=== PATIENT | female | born 1960 | race Caucasian/White ===

== ENCOUNTER 2022-03-31 15:44 | Emergency (ER) | payer SELFPAY ==
[~2022-03-31] VITALS: Ht 167.6 cm; Wt 108.9 kg
[2022-03-31 15:47] VITALS: BP 176/93
--- NOTE | 2022-03-31 15:47 | NUR ---
BIBA TO BED 12.
[2022-03-31] MEDS ORDERED: MECLIZINE 25 MG TAB PO ONE (16:40)
[2022-03-31] MEDS ORDERED: NACL 0.9% 1,000 ML IV ONE (16:40)
[2022-03-31] MEDS ORDERED: ONDANSETRON 4 MG/2 ML VIAL IVP ONE (16:40)
--- NOTE | 2022-03-31 16:40 | NUR ---
61 y/o female biba, pt presents to ed with lightheadedness, nausea and vomiting since 1300, pt states she was waiting outside in the heat and started feeling dizzy. denies cp, sob, fever, chills, or cough. a&ox4, states she is unable to ambulate at this time due to feeling dizzy and weak, c/o pain 5/10 on left side of her head. pmh: htn, vertigo nka med: advil
--- NOTE | 2022-03-31 17:06 | NUR ---
santiago called on the phone, given update at this time
[2022-03-31 17:19] LABS: BASOPHILS % (AUTO) 0.3 % (0.0-2.0); EOSINOPHILS % (AUTO) 0.1 % (0.0-4.0); HEMATOCRIT 43.6 % (36-48); LYMPHOCYTES # (AUTO) 1.1 K/uL (2.5-16.5); LYMPHOCYTES % (AUTO) 7.9 % (20.5-51.1); MEAN CORPUSCULAR HEMOGLOBIN 26 pg (27-31); MEAN CORPUSCULAR HGB CONC 32 g/dL (33-37); MEAN CORPUSCULAR VOLUME 80.2 fL (80-94); MONOCYTES # (AUTO) 0.4 K/uL (0.8-1.0); MONOCYTES % (AUTO) 3.1 % (1.7-9.3); NEUTROPHILS # (AUTO) 11.8 K/uL (1.8-7.7); NEUTROPHILS % (AUTO) 88.6 % (42.2-75.2); PLATELET COUNT (AUTO) 224 K/uL (140-450); RED BLOOD CELL COUNT(AUTO) 5.44 MIL/uL (4.20-5.40); RED CELL DISTRIBUTION WIDTH 16.2 % (11.6-13.7); WHITE BLOOD COUNT (AUTO) 13.3 K/uL (4.8-10.8)
[2022-03-31 17:31] LABS: ANION GAP 12.2 (8-16); CARBON DIOXIDE 25.4 mmol/L (21-32); CREATININE 0.8 mg/dL (0.6-1.3); POTASSIUM 3.6 mmol/L (3.5-5.1)
--- NOTE | 2022-03-31 18:21 | NUR ---
pt ambulated to the bathroom at this time with even and steady gait
[2022-03-31] MEDS ORDERED: diazePAM 5 MG TAB PO ONE (18:40)
--- NOTE | 2022-03-31 19:12 | NUR ---
Patient appears to be resting comfortably in bed. Vital Signs within normal limits. Respirations even and unlabored.
--- NOTE | 2022-03-31 19:23 | NUR ---
Pt report given to Polly VALDIVIA. Transfer of care at this time.
[2022-03-31] MEDS ORDERED: ONDA8TAB87 PO (19:25)
[2022-03-31] MEDS ORDERED: MECL-303 PO (19:25)
--- NOTE | 2022-03-31 19:35 | NUR ---
.PT IS AWAKE AND ALERT, ALL NEEDS MET AT THIS TIME. BED LOCKED IN LOWEST POSITION, SIDE RAILS X2 FOR SAFETY
[2022-03-31 20:08] VITALS: BP 174/89
--- NOTE | 2022-03-31 20:08 | NUR ---
Patient discharged with v/s stable. Written and verbal after care instructions given and explained. Patient alert, oriented and verbalized understanding of instructions. Ambulatory with steady gait. All questions addressed prior to discharge. ID band removed. Patient advised to follow up with PMD. Rx of ZOFRAN AND ANTIVERT. given. Patient educated on indication of medication including possible reaction and side effects. Opportunity to ask questions provided and answered.
== END 2022-03-31 20:08 | disposition home or self-care (01) ==
LOC: MED 15:44
DX: R42 Dizziness and giddiness (principal); R11.2 Nausea with vomiting, unspecified; R51.9 Headache, unspecified; I10 Essential (primary) hypertension
CPT/HCPCS: 36415; 70450; 80048; 85025; 96361; 96374; 99284; J2405; J7030; J8597